=== PATIENT | female | born 1960 | race Caucasian/White ===

== ENCOUNTER 2024-03-09 12:11 | Emergency (ER) | payer BC, OTHER ==
--- OUTSIDE RECORDS SUMMARY | 2024-03-09 12:17 | XMS REPORT | Continuity of Care Document ---
Author Name Unknown Address [address] [facility] [address] [place] [address] [facility] thconnect Address [address] [place] [address] Care Team Providers Care Meat Team Member Name Role Phone IGNACIA SANON Primary Care Physician UnaDAISY Lincoln Attending Clinician Unavailable MIMI ANSARI Attending Clinician Unavailable PRAVIN MALDONADO Attending Clinician Unavailable Pravin Veloz Attending Clinician [phone] Unknown, Attending Attending Clinician Unavailab le Doctor Unassigned, [place] Attending Clinician U GRUPO Sanchez Attending Clinician Last Chavez OT Attending Clinician Grupo Trotter MD Attending Clinician [phone] Eulalia Becerra PT Attending Clinician Suzan Rivera Attending Clinician AMEE Kaur Attending Clinician IGNACIA Montemayor Attending Clinician AMEE Huizar Admitting Clinician Mookie barriga Payers Payer Name Policy Type Policy Number Effective Date Expirati on Date Source [place] OF [place] [id number] 2020 00:00:00 [facility] [id number] 2020 00:00:00 Problems Condition Name Condition Details Condition Category Status Onset Date Resolution Date Last Treatment Date Treating Clinician Comments Source 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 Disease Active 01-13 00:00: 00 [facility] Impaired motor control Impaired motor control Disease Active 01-13 00:00: 00 [facility] Decreased activities of daily living (ADL) Decreased activities of daily living (ADL) Disease Active 01-13 00:00: 00 [facility] Allergies, Adverse Reactions, Alerts Allergy Name Allergy Type Status Severity Reaction(s) Onset Date Inactive Date Treating Clinician Comments Source PENICILL INS Drug Class Active Unknown-Cmnt 2022-08 00:00: 00 [facility] SULFA (SULFONA MIDE ANTIBIOT ICS) Drug Class Active Other-Cmnt 2022-08 00:00: 00 [facility] Penicill ins Propensi ty to adverse reaction s Active Unknown - See comments 2022-08 00:00: 00 PT. MOM ADVISED NOT TO TAKE [facility] Sulfa (Sulfona mide Antibiot ics) Propensi ty to adverse reaction s Active Other - See comments 2022-08 00:00: 00 [facility] NO KNOWN ALLERGIE S Drug Class Active [facility] Social History Social Habit Start Date Stop Date Quantity Comments Source [facility] Tobacco use and exposure 2023-06-08 00:00:00 2023-06-08 00:00:00 Smokeless tobacco non-user [facility] History of Social function 2023-06-08 00:00:00 2023-06-08 00:00:00 [facility] Sex Ass[birth year] At 1960 00:00:00 1960 00:00:00 [facility] Smoking Status Start Date Stop Date Source Tobacco smoking consumption unknown [facility] Never smoked tobacco [facility] Medications Ordered Medication Name Filled Medication Name Start Date Stop Date Current Medication? Ordering Clinician Indication Dosage Frequency Signature (SIG) Comments Components Source benzonatate 200 mg capsule 2022-08 00:00: 00 06-19 05:59 :00 No [id number] 200mg Take 1 capsule by mouth 3 (three) times daily as needed for Cough for up to 10 days. [facility] Vital Signs Vital Name Observation Time Observation Value Comments S ource Systolic blood pressure 2023-06-08 20:11:00 166 mm[Hg] [facility] Diastolic blood pressure 2023-06-08 20:11:00 98 mm[Hg] [facility] Heart rate 2023-06-08 20:10:00 88 /min [facility] Body temperature 2023-06-08 20:10:00 36.56 Misti [facility] Respiratory rate 2023-06-08 20:10:00 18 /min [facility] Body height 2023-06-08 20:10:00 170.2 cm [facility] Body weight 2023-06-08 20:10:00 65.772 kg [facility] BMI 2023-06-08 20:10:00 22.71 kg/m2 [facility] Oxygen saturation in Arterial blood by Pulse oximetry 2023-06-08 20:10:00 96 /min [facility] Procedures Procedure Date / Time Performed Performing Clinicia n Source POCT MOLECULAR STREP 2023-06-08 20:14:00 Unknown, Atte maykel [facility] ASSIGNMENT OF BENEFITS 2023-06-08 20:01:54 Docto r Unassigned, [place] [facility] OP CLINIC NOTES/CONSULTS 2021-07-30 06:01:00 Doctor Unassigned, [place] [facility] Encounters Start Date/Time End Date/Time Encounter Type Admission Type Attending Clinicians Care Facility Care Department Encounter ID Source 2023-01-20 14:41:06 Outpatient [facility] [id number] [facility] 2022-12-24 08:47:42 Outpatient [facility] [id number] [facility] 2022-12-17 15:15:32 Outpatient [facility] [id number] [facility] 2022-06-21 13:58:53 Outpatient [facility] [id number] [facility] 2021-12-24 15:05:20 Outpatient [facility] [id number] [facility] 2021-12-22 01:05:07 Outpatient DAISY KLINE [facility] [id number] [facility] 2021-12-21 10:11:01 Outpatient DAISY KLINE [facility] [id number] [facility] 2021-12-18 12:51:28 Outpatient DAISY KLINE [facility] [id number] [facility] 2021-12-08 10:52:22 Outpatient DAISY KLINE [facility] [id number] [facility] 2021-12-03 17:24:06 Outpatient DAISY KLINE [facility] [id number] [facility] 2021-10-29 13:40:51 Outpatient [facility] [id number] [facility] 2021-06-30 01:04:45 Outpatient DAISY KLINE [facility] [id number] [facility] 2025-01-23 08:30:00 2025-01-23 08:30:00 Outpatient MIMI ANSARI [facility] [id number] [facility] 2024-01-27 13:30:00 2024-01-27 14:27:19 Outpatient DAISY KLINE [facility] [id number] [facility] 2024-01-24 08:45:00 2024-01-24 09:36:06 Outpatient MIMI ANSARI [facility] [id number] [facility] 2023-06-08 14:20:00 2023-06-08 14:26:37 Outpatient R PRAVIN MALDONADO [facility] [id number] [facility] 2023-06-08 14:20:00 2023-06-08 14:26:37 Urgent Care Pravin Maldonado Unknown, Attending [facility] [id number] 350.1.13.10 4.2.7.2.686 [id number] [facility] 2023-06-08 00:00:00 2023-06-08 00:00:00 Orders Only Doctor Unassigned, [place] [facility] 1.2.840.114 350.1.13.10 4.2.7.2.686 [id number] [facility] 2023-01-25 09:00:00 2023-01-25 09:22:30 Outpatient MIMI ANSARI [facility] [id number] [facility] 2022-12-24 09:30:00 2022-12-24 09:30:00 Outpatient DAISY KLINE [facility] [id number] [facility] 2022-06-23 07:30:00 2022-06-23 08:20:04 Outpatient MIMI ANSARI [facility] [id number] [facility] 2021-07-30 15:30:00 2021-07-30 17:20:50 Outpatient GRUPO SCHAEFFER [facility] [id number] [facility] 2021-07-30 15:30:00 2021-07-30 17:20:50 Ancillary Visit Last Sagastume Craig [facility] 1.2.840.114 350.1.13.10 4.2.7.2.686 [id number] [facility] 2021-07-30 00:00:00 2021-07-30 00:00:00 Orders Only Doctor Unassigned, [place] [facility] 1.2.840.114 350.1.13.10 4.2.7.2.686 [id number] [facility] 2021-07-21 15:00:00 2021-07-21 16:16:05 Outpatient GRUPO SCHAEFFER [facility] [id number] [facility] 2021-07-14 15:22:49 2021-07-14 16:50:34 Ancillary Visit Last Sagastume Craig L [facility] 1.2840.114 350.1.13.10 4.2.7.2.686 [id number] [facility] 2021-06-30 15:15:00 2021-06-30 17:17:18 Outpatient R GRUPO FIGUEROA [facility] [id number] [facility] 2021-06-30 15:07:00 2021-06-30 17:17:18 Ancillary Visit [facility] 1.2.840.114 350.1.13.10 4.2.7.2.686 [id number] [facility] 2021-06-23 14:19:32 2021-06-23 16:16:52 Ancillary Visit Last Sagastume Craig L [facility] N[facility] 1.2.840.114 350.1.13.10 4.2.7.2.686 [id number] [facility] 2021-06-16 14:56:35 2021-06-16 15:41:35 Ancillary Visit Last [facility]ume [facility] 1.2.840.114 350.1.13.10 4.2.7.2.686 [id number] [facility] 2021-06-09 15:08:43 2021-06-09 15:53:43 Ancillary Visit Last [facility]ume [facility] 1.2.840.114 350.1.13.10 4.2.7.2.686 [id number] [facility] 2021-06-02 15:11:32 2021-06-02 17:28:48 Ancillary Visit Last Sagastume Craig L [facility] 1.2840.114 350.1.13.10 4.2.7.2.686 [id number] [facility] 2021-05-26 15:12:34 2021-05-26 15:57:34 Ancillary Visit Last Sagastume Craig L [facility] Building 1.2.840.114 350.1.13.10 4.2.7.2.686 [id number] [facility] 2021-05-19 13:19:03 2021-05-19 14:51:01 Ancillary Visit Last Sagastume Craig L [facility] 1..840.114 350.1.13.10 4.2.7.2.686 [id number] [facility] 2021-05-19 13:45:00 2021-05-19 13:45:00 Outpatient GRUPO SCHAEFFER [facility] [id number] [facility] 2021-05-18 14:49:44 2021-05-18 15:49:44 Ancillary Visit Eulalia Becerra Craig L [facility] 1.2.84.114 350.1.13.10 4.2.7.2.686 [id number] [facility] 2021-05-18 14:20:00 2021-05-18 14:20:00 Outpatient GRUPO SCHAEFFER [facility] [id number] [facility] 2021-05-12 00:00:00 2021-05-12 00:00:00 Orders Only Doctor Unassigned, [place] [facility] 1.84.114 350.1.13.10 4.2.7.2.686 [id number] [facility] 2021-03-02 13:02:26 2021-03-02 13:47:26 Ancillary Visit Suzan Dang Craig L [facility] Profess[facility]al Building 1.2.840.114 350.1.13.10 4.2.7.2.686 [id number] [facility] 2021-03-02 13:00:00 2021-03-02 13:00:00 Outpatient GRUPO SCHAFEFER [facility] [id number] [facility] 2021-02-24 10:58:40 2021-02-24 11:54:22 Ancillary Visit Last Sagastume Craig L [facility] Building 1.2.840.114 350.1.13.10 4.2.7.2.686 [id number] [facility] 2021-02-24 11:00:00 2021-02-24 11:00:00 Outpatient GRUPO SCHAEFFER [facility] [id number] [facility] 2021-02-23 13:09:40 2021-02-23 13:54:40 Ancillary Visit Suzan Dang Craig L [facility] Building 1.2.840.114 350.1.13.10 4.2.7.2.686 [id number] [facility] 2021-02-16 13:02:19 2021-02-16 14:30:26 Ancillary Visit Suzan Dang Craig L [facility] Building 1.2.840.114 350.1.13.10 4.2.7.2.686 [id number] [facility] 2021-02-10 09:22:23 2021-02-10 10:19:46 [facility]illary [facility] 1.2.840.114 350.1.13.10 4.2.7.2.686 [id number] [facility] 2021-02-10 09:30:00 2021-02-10 09:30:00 Outpatient R GRUPO FIGUEROA [facility] [id number] [facility] 2021-02-05 08:05:26 2021-02-05 09:11:45 Ancillary Visit Last Sagastume Craig L [facility] Building 1.2.840.114 350.1.13.10 4.2.7.2.686 [id number] [facility] 2021-02-02 13:00:00 2021-02-02 13:00:00 Outpatient R GRUPO FIGUEROA [facility] [id number] [facility] 2021-01-27 09:39:54 2021-01-27 10:24:54 Ancillary Visit Last Sagastume Craig L [facility] 1.2.840.114 350.1.13.10 4.2.7.2.686 [id number] [facility] 2021-01-26 13:02:44 2021-01-26 14:55:40 Ancillary Visit [facility] 1.2.840.114 350.1.13.10 4.2.7.2.686 [id number] [facility] 2021-01-20 10:13:03 2021-01-20 11:14:25 Ancillary Visit Last Sagastume Craig L [facility] Building 1.2.840.114 350.1.13.10 4.2.7.2.686 [id number] [facility] 2021-01-19 13:03:01 2021-01-19 14:07:52 Ancillary Visit [facility] 1.2.840.114 350.1.13.10 4.2.7.2.686 [id number] [facility] 2021-01-19 13:00:00 2021-01-19 13:00:00 Outpatient R GRUPO FIGUEROA [facility] [id number] [facility] 2021-01-15 00:00:00 2021-01-15 00:00:00 Orders Only Doctor Unassigned, [place] [facility] 1.2840.114 350.1.13.10 4.2.7.2.686 [id number] [facility] 2021-01-13 13:35:23 2021-01-13 14:56:01 Ancillary Visit Last Sagastume Craig [facility] Building 1..840.114 350.1.13.10 4.2.7.2.686 [id number] [facility] 2021-01-13 13:45:00 2021-01-13 13:45:00 Outpatient R GRUPO FIGUEROA [facility] [id number] [facility] 2021-01-13 00:00:00 2021-01-13 00:00:00 Orders Only Doctor Unassigned, [place] [facility] 1.2.840.114 350.1.13.10 4.2.7.2.686 [id number] [facility] 2021-01-12 11:00:00 2021-01-12 11:00:00 Outpatient R [facility] [id number] [facility] 2020-12-18 09:15:00 2020-12-21 10:35:00 Inpatient AMEE SOLIS [facility] [id number] [facility] 2020-12-18 09:30:00 2020-12-18 23:59:00 Outpatient IGNACIA DYE [facility] BRANDI [id number] [facility] Results Test Description Test Time Test Comments Results Result Co mments Source [facility]
[2024-03-09] MEDS ORDERED: NA CHLORIDE 0.9% 1,000 ML ONE (12:51)
--- NOTE | 2024-03-09 12:57 | RAD REPORT ---
EXAM DESCRIPTION: RAD - Chest Single View - 03/09/2024 12:45 pm CLINICAL HISTORY: syncope Chest pain. COMPARISON: CHEST PA AND LAT 2 VIEW dated 08/27/2010; CHEST SINGLE VIEW dated 12/03/2008; CHEST SINGLE VIEW dated 10/05/2006 FINDINGS: Portable technique limits examination quality. The lungs are grossly clear. The heart is normal in size. No displaced fractures. IMPRESSION: No acute intrathoracic process suspected.
--- NOTE | 2024-03-09 12:58 | RAD REPORT ---
EXAM DESCRIPTION: CT - Head Brain Wo Cont - 03/09/2024 12:46 pm CLINICAL HISTORY: syncope, headache Headache, drowsiness COMPARISON: HEAD BRAIN W O CONTRAST dated 08/05/2008 TECHNIQUE: All CT scans are performed using dose optimization technique as appropriate and may inclu de automated exposure control or mA/KV adjustment according to patient size. FINDINGS: No intracranial hemorrhage, hydrocephalus or extra-axial fluid collection.Gliosis is seen in the distribution of right middle cerebral artery likely related to old infarct. The paranasal sinuses and mastoids are clear. The calvarium is intact. IMPRESSION: No acute intracranial abnormality.
[2024-03-09] MEDS ORDERED: ONDANSETRON 4 MG/2 ML VIAL ONE (13:03)
[2024-03-09 13:09] LABS: Albumin 4.4 g/dL (3.4-5.0); Albumin/Globulin Ratio 1.1 (1.1-1.8); Anion Gap 9.4 mEq/L (5.0-15.0); Bilirubin Direct 0.2 mg/dL (0-0.2); Bilirubin Indirect, Calculated 0.7 mg/dL (0.2-0.8); Bilirubin Total 0.9 mg/dL (0.2-1.0); Globulin 4.1 g/dL (2.3-3.5); Magnesium 2.3 mg/dL (1.6-2.4); Potassium 3.4 mEq/L (3.5-5.1); Protein, Total 8.5 g/dL (6.4-8.2); Troponin High Sensitivity 4.2 pg/mL (<58.9)
[2024-03-09 13:13] LABS: Absolute Lymphocytes (CBC) 1.5 K/uL (0.7-4.9); Absolute Monocytes 0.5 K/uL (0.1-1.3); Absolute Neutrophil 3.7 K/uL (1.8-8.0); Basophils % 0.5 % (0-1.3); Eosinophils % 0.8 % (0-4.4); Hematocrit 39.7 % (36.0-45.0); Hemoglobin 13.8 g/dL (12.0-15.0); Lymphocytes % 26.7 % (15.3-44.8); MCHC 34.7 g/dL (32.0-36.0); MCV 89.6 fL (80-100); MPV 7.1 fL (7.6-11.3); Monocytes % 8.8 % (3.3-12.3); Neutrophils % 63.2 % (41.7-73.7); Nucleated Red Blood Cells % 0.3 % (0-0); Platelets 207 thou/uL (152-406); RBC Red Blood Cell Count 4.44 M/uL (3.86-4.86)
--- NOTE | 2024-03-09 14:00 | ER ---
Nurse's Notes [facility] Name: Damaris Alaniz Age: 63 yrs Sex: Female : 1960 Arrival Date: 03/09/2024 Time: 12:11 Bed 3 Private MD: Diagnosis: Syncope Presentation: 03/09 12:29 Chief complaint: EMS states: SYNCOPAL EPISODE AT WORK. STATES WAS OUTSIDE SAW BLACK db SPOTS THEN WOKE UP ON THE GROUND AND WITNESSES STATED PT "PASSED OUT". Coronavirus screen: Client denies travel out of the [place] in the last 14 days. At this time, the client does not indicate any symptoms associated with coronavirus-19. Ebola Screen: Patient negative for fever greater than or equal to 101.5 degrees Fahrenheit, and additional compatible Ebola Virus Disease symptoms Patient denies exposure to infectious person. Patient denies travel to an Ebola-affected area in the 21 days before illness onset. No symptoms or risks identified at this time. Initial Sepsis Screen: Does the patient meet any 2 criteria? No. Patient's initial sepsis screen is negative. Does the patient have a suspected source of infection? No. Patient's initial sepsis screen is negative. Risk Assessment: Do you want to hurt yourself or someone else? Patient reports no desire to harm self or others. Onset of symptoms was March 09, 2024. 12:29 Method Of Arrival: EMS: [facility] db 12:29 Acuity: DONNA 3 db 12:29 Care prior to arrival: Medication(s) given: Normal saline infusion, 250 ML IV db initiated. 20 GA, in the right forearm, Glucose check: 130. Triage Assessment: 12:36 General: Appears in no apparent distress. comfortable, Behavior is calm, cooperative. db Pain: Denies pain. Neuro: Level of Consciousness is awake, alert, obeys commands, Oriented to person, place, time, situation, Reports a syncopal episode. Respiratory: Airway is patent Respiratory effort is even, unlabored, Respiratory pattern is regular, symmetrical. Historical: - Allergies: 12:36 PENICILLINS; db 12:36 Sulfa (Sulfonamide Antibiotics); db - PMHx: 12:36 Cerebrovascular accident; db - Immunization history:: Adult Immunizations unknown. - Infectious Disease History:: Denies. - Social history:: Smoking status: Patient denies any tobacco usage or history of. - Family history:: not pertinent. Screenin:06 [facility] ED Fall Risk Assessment (Adult) History of falling in the last 3 months, db including since admission No falls in past 3 months (0 pts) Confusion or Disorientation No (0 pts) Intoxicated or Sedated No (0 pts) Impaired Gait No (0 pts) Mobility Assist Device Used No (0 pt) Altered Elimination No (0 pt) Score/Fall Risk Level 0 - 2 = Low Risk Oriented to surroundings, Maintained a safe environment. Abuse screen: Denies threats or abuse. Denies injuries from another. Nutritional screening: No deficits noted. Tuberculosis screening: No symptoms or risk factors identified. Assessment: 12:37 Reassessment: SEE TRIAGE FOR INITIAL ASSESSMENT. db 13:07 Reassessment: Patient appears in no apparent distress at this time. Patient and/or db family updated on plan of care and expected duration. Pain level reassessed. Patient is alert, oriented x 3, equal unlabored respirations, skin warm/dry/pink. General: Appears in no apparent distress. comfortable, Behavior is calm, cooperative. Pain: Complains of pain in head. Neuro: Level of Consciousness is awake, alert, obeys commands, Oriented to person, place, time, situation. Neuro: Reports headache. Cardiovascular: Rhythm is sinus rhythm. Respiratory: Airway is patent Respiratory effort is even, unlabored, Respiratory pattern is regular, symmetrical. GI: Reports nausea. 14:27 Reassessment: Patient appears in no apparent distress at this time. Patient and/or db family updated on plan of care and expected duration. Pain level reassessed. Patient is alert, oriented x 3, equal unlabored respirations, skin warm/dry/pink. General: Appears in no apparent distress. comfortable, Behavior is calm, cooperative. Vital Signs: 12:29 BP 123 / 82; Pulse 75; Resp 16; Temp 97.9(O); Pulse Ox 96% on R/A; Weight 65.77 kg; db Height 5 ft. 7 in. ; 12:30 Pulse 83; Resp 16; Pulse Ox 100% ; db 13:00 BP 144 / 84; Pulse 83; Resp 14; Pulse Ox 100% on R/A; db 13:30 BP 125 / 86; Pulse 88; Resp 18; Pulse Ox 100% on R/A; db 14:00 BP 117 / 79; Pulse 89; Resp 16; Pulse Ox 100% on R/A; db 12:29 Body Mass Index 22.71 (65.77 kg, 170.18 cm) db ED Course: 12:33 Patient arrived in ED. rt 12:33 Ricky Ron MD is Attending Physician. rt 12:33 Linda Jennings RN is Primary Nurse. db 12:35 Triage completed. db 12:36 Arm band placed on Patient placed in an exam room. db 12:38 Maintain EMS IV. Dressing intact. Good blood return noted. Site clean \\T\\ dry. Gauge \\T\\ db site: 20G RIGHT FOREARM. 12:47 XRAY Chest (1 view) In Process Unspecified. EDMS 12:47 CT Head Brain wo Cont In Process Unspecified. EDMS 14:27 Patient has correct armband on for positive identification. Bed in low position. Call db light in reach. Side rails up X 1. Provided Education on: DISCHARGE. Client placed on continuous cardiac and pulse oximetry monitoring. NIBP monitoring applied. security monitor on. Pulse ox on. NIBP on. Warm blanket given. Pillow given. 14:27 No provider procedures requiring assistance completed. IV discontinued, intact, db bleeding controlled, No redness/swelling at site. Administered Medications: 12:55 Drug: NS 0.9% IV 1000 ml IV at 1 bolus Per protocol; 1000 mL bolus Route: IV; Rate: 1 db bolus; Site: right forearm; 14:23 Follow up: Response: No adverse reaction; IV Status: Completed infusion; IV Intake: db 1000ml 13:03 Drug: Ondansetron IVP 4 mg IVP once; over 2 minutes Route: IVP; Site: right forearm; db 14:23 Follow up: Response: No adverse reaction db Medication: 13:06 VIS not applicable for this client. db Intake: 14:23 IV: 1000ml; Total: 1000ml. db Outcome: 13:59 Discharge ordered by . rt 14:27 Discharged to home ambulatory, with family, db 14:27 Condition: stable 14:27 Discharge instructions given to patient, family, Instructed on discharge instructions, follow up and referral plans. 14:28 Patient left the ED. db Signatures: Dispatcher [employer] EDMS Linda Jennings RN RN db [place], Ricky, MD MD rt
--- NOTE | 2024-03-09 14:00 | EDPHYS ---
Physician Documentation [facility] Name: Damaris Alaniz Age: 63 yrs Sex: Female : 1960 Arrival Date: 03/09/2024 Time: 12:11 Bed 3 Private MD: ED Physician Ricky Ron HPI: 03/09 13:24 This 63 yrs old Female presents to ER via EMS with complaints of Syncope. rt 13:24 Patient presents to the ED with a syncopal event. Patient was outside walking around, rt drinking acutely lightheaded. Did have a witnessed loss of consciousness, was helped home to the ground, no injuries. Patient reports a mild headache, nausea currently but denies any lightheadedness. Denies other acute complaints at this time, symptoms are moderate in severity, no other aggravating or alleviating factors.. Historical: - Allergies: 12:36 PENICILLINS; db 12:36 Sulfa (Sulfonamide Antibiotics); db - PMHx: 12:36 Cerebrovascular accident; db - Immunization history:: Adult Immunizations unknown. - Infectious Disease History:: Denies. - Social history:: Smoking status: Patient denies any tobacco usage or history of. - Family history:: not pertinent. ROS: 13:24 Constitutional: Negative for fever, chills, and weight loss, Cardiovascular: Negative rt for chest pain, palpitations, and edema, Respiratory: Negative for shortness of breath, cough, wheezing, and pleuritic chest pain, MS/Extremity: Negative for injury and deformity, Skin: Negative for injury, rash, and discoloration, 13:24 Abdomen/GI: Positive for nausea, Negative for abdominal pain, vomiting, 13:24 Neuro: Positive for headache, syncope, Exam: 13:24 Constitutional: This is a well developed, well nourished patient who is awake, alert, rt and in no acute distress. Head/Face: Normocephalic, atraumatic. Chest/axilla: Normal chest wall appearance and motion. Nontender with no deformity. No lesions are appreciated. Cardiovascular: Regular rate and rhythm with a normal S1 and S2. No gallops, murmurs, or rubs. Normal PMI, no JVD. No pulse deficits. Respiratory: Lungs have equal breath sounds bilaterally, clear to auscultation and percussion. No rales, rhonchi or wheezes noted. No increased work of breathing, no retractions or nasal flaring. Abdomen/GI: Soft, non-tender, with normal bowel sounds. No distension or tympany. No guarding or rebound. No evidence of tenderness throughout. Skin: Warm, dry with normal turgor. Normal color with no rashes, no lesions, and no evidence of cellulitis. MS/ Extremity: Pulses equal, no cyanosis. Neurovascular intact. Full, normal range of motion. Neuro: Awake and alert, GCS 15, oriented to person, place, time, and situation. Cranial nerves II-XII grossly intact. Motor strength 5/5 in all extremities. Sensory grossly intact. Cerebellar exam normal. Normal gait. 13:24 ECG was reviewed by the Attending Physician. Vital Signs: 12:29 BP 123 / 82; Pulse 75; Resp 16; Temp 97.9(O); Pulse Ox 96% on R/A; Weight 65.77 kg; db Height 5 ft. 7 in. ; 12:30 Pulse 83; Resp 16; Pulse Ox 100% ; db 13:00 BP 144 / 84; Pulse 83; Resp 14; Pulse Ox 100% on R/A; db 13:30 BP 125 / 86; Pulse 88; Resp 18; Pulse Ox 100% on R/A; db 14:00 BP 117 / 79; Pulse 89; Resp 16; Pulse Ox 100% on R/A; db 12:29 Body Mass Index 22.71 (65.77 kg, 170.18 cm) db MDM: 12:33 Patient medically screened. rt 14:00 Differential Diagnosis: Syncope, SAH, intracranial hemorrhage, dysrhythmia, vasovagal rt event, electrolyte disturbance. Data reviewed: vital signs, nurses notes, lab test result(s), EKG, radiologic studies. Consideration of Admission/Observation Escalation of care including admission/observation considered. Unremarkable labs, patient informed of mild elevation of transaminases, does not require admission for this. Patient observed for period time in the ED, symptoms are improving, workup is otherwise benign. Stable for outpatient care, return precautions discussed.. I considered the following discharge prescriptions or medication management in the emergency department Medications were administered in the Emergency Department. See MAR. Independent interpretation of the following test(s) in the Emergency Department CT Scan: My interpretation is No intracranial hemorrhage seen on my interpretation of CT scan images. Care significantly affected by the following chronic conditions: Previous CVA. Counseling: I had a detailed discussion with the patient and/or guardian regarding the historical points, exam findings, and any diagnostic results supporting the discharge/admit diagnosis, lab results, radiology results, the need for outpatient follow up, to return to the emergency department if symptoms worsen or persist or if there are any questions or concerns that arise at home. Response to treatment: the patient's symptoms have markedly improved after treatment. 03/09 12:36 Order name: Basic Metabolic Panel; Complete Time: 13:20 rt 03/09 12:36 Order name: CBC with Diff; Complete Time: 13:20 rt 03/09 12:36 Order name: LFT's; Complete Time: 13:20 rt 03/09 12:36 Order name: Magnesium; Complete Time: 13:20 rt 03/09 12:36 Order name: Troponin HS; Complete Time: 13:20 rt 03/09 12:36 Order name: XRAY Chest (1 view); Complete Time: 13:00 rt 03/09 12:36 Order name: CT Head Brain wo Cont; Complete Time: 13:00 rt 03/09 12:36 Order name: Cardiac monitoring; Complete Time: 13:05 rt 03/09 12:36 Order name: EKG - Nurse/Tech; Complete Time: 13:05 rt 03/09 12:36 Order name: IV Saline Lock; Complete Time: 13:05 rt 03/09 12:36 Order name: Labs collected and sent; Complete Time: 13:05 rt 03/09 12:36 Order name: O2 Per Protocol; Complete Time: 13:05 rt 03/09 12:36 Order name: O2 Sat Monitoring; Complete Time: 13:05 rt EC:24 Rate is 77 beats/min. Rhythm is regular, Normal Sinus Rhythm with No ectopy. QRS [place] rt is Normal. AR interval is normal. QRS interval is normal. QT interval is normal. No Q waves. No ST changes noted. Interpreted by me. Administered Medications: 12:55 Drug: NS 0.9% IV 1000 ml IV at 1 bolus Per protocol; 1000 mL bolus Route: IV; Rate: 1 db bolus; Site: right forearm; 14:23 Follow up: Response: No adverse reaction; IV Status: Completed infusion; IV Intake: db 1000ml 13:03 Drug: Ondansetron IVP 4 mg IVP once; over 2 minutes Route: IVP; Site: right forearm; db 14:23 Follow up: Response: No adverse reaction db Disposition Summary: 03/09/24 13:59 Discharge Ordered Notes: Location: Home rt Problem: new rt Symptoms: have improved rt Condition: Stable rt Diagnosis - Syncope rt Followup: rt - With: Private Physician - When: 2 - 3 days - Reason: Discharge Instructions: - Discharge Summary Sheet rt - Syncope rt - Liver Function Tests rt Forms: - Work release form hb - Medication Reconciliation Form rt - Antibiotic Education rt - Prescription Opioid Use rt - Patient Portal Instructions rt - Leadership Thank You Letter rt Signatures: Dispatcher [employer] EDLinda Guerra RN RN Ricky Muhammad MD MD rt Corrections: (The following items were deleted from the chart) 12:36 12:36 BASIC METABOLIC PANEL+C.LAB.BRZ ordered. EDMS EDMS 12:36 12:36 CBC+H.LAB.BRZ ordered. EDMS EDMS 12:36 12:36 HEPATIC FUNCTION+C.LAB.BRZ ordered. EDMS EDMS 12:36 12:36 MAGNESIUM+C.LAB.BRZ ordered. EDMS EDMS 12:36 12:36 Troponin High Sensitivity+C.LAB.BRZ ordered. EDMS EDMS 12:37 12:37 Head Brain Wo Cont+CT.RAD.BRZ ordered. EDMS EDMS
[2024-03-09 14:55] VITALS: TEMP 97.9
[2024-03-09 14:56] VITALS: O2SAT 100
[2024-03-09 15:00] VITALS: BP 117/79
--- NOTE | 2024-03-12 13:56 | EKG ---
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
== END 2024-03-09 14:28 | disposition home or self-care (01) ==
LOC: ER 12:11
DX: R55 Syncope and collapse (principal); R51.9 Headache, unspecified; Z86.73 Personal history of transient ischemic attack (TIA), and cerebral infarction without residual deficits
CPT/HCPCS: 96361; 85025; 80048; 36415; 83735; 80076; 84484; 70450; 71045; 96374; 99284; J2405; J7030; 93005